=== PATIENT | male | born 1945 | race Caucasian/White ===

== ENCOUNTER 2017-01-31 13:08 | Emergency (ER) | payer OTHER ==
[2017-01-31 13:32] VITALS: TEMP 97.6; BMI 26.0
[2017-01-31] MEDS ORDERED: ONDANSETRON 4 MG/2 ML VIAL IVPB ONE (13:46)
[2017-01-31] MEDS ORDERED: KETOROLAC TROMETHAMINE 30 MG/1 ML VIAL IVPUSH ONE (13:47)
[2017-01-31] MEDS ORDERED: SODIUM CHLORIDE 1,000 ML IV STA (13:47)
--- NOTE | 2017-01-31 13:53 | PDOC ---
History of Present Illness - General Chief Complaint: Back Pain Stated Complaint: RIGHT BACK AND FLANK PAIN Time Seen by Provider: 01/31/17 13:26 - History of Present Illness Initial Comments: 01/31/17 13:49 71-year-old male with a past medical history of hypertension, hyperlipidemia, AODM, CAD status post CABG, and 2 stents, and also ulcerative colitis He has a remote history of a prior kidney stone 25 years ago Patient is complaining of onset of right flank pain radiating to his right lower quadrant at about 6 AM, which has intermittently become severe, and has been associated with nausea and some intermittent dark looking urine He denies any vomiting, he denies any fevers or chills, he denies any left sided flank pain He states that the pain feels similar to his prior kidney stone pain He denies any testicular pain He denies any other complaints at this time, and the remainder of the review of systems is negative Past History - Past Medical History Allergies/Adverse Reactions: Allergies Allergy/AdvReac Type Severity Reaction Status Date / Time No Known Allergies Allergy Unverified 01/31/17 13:10 Home Medications: Ambulatory Orders Atorvastatin Ca [Lipitor] 80 mg PO DAILY 01/31/17 Clopidogrel Bisulfate [Plavix -] 75 mg PO DAILY 01/31/17 Glipizide [Glipizide ER] 2.5 mg PO DAILY 01/31/17 Mesalamine [Lialda] 1.2 gm PO DAILY 01/31/17 Metoprolol Succinate [Toprol Xl -] 100 mg PO DAILY 01/31/17 Oxycodone HCl/Acetaminophen [Percocet 5-325 mg Tablet] 1 - 2 tab PO Q6H PRN #20 tab MDD 8 01/31/17 Tamsulosin HCl [Flomax] 0.4 mg PO DAILY #7 cap.er.24h 01/31/17 Cardiac Disorders: Yes Diabetes: Yes GI Disorders: Yes Kidney Stones: Yes - Surgical History Cardiac Surgery: Yes (BYPASS QUADRUPLE 2 STENTS) - Psycho/Social/Smoking Cessation Hx Anxiety: No Suicidal Ideation: No Smoking History: Former smoker Have you smoked in the past 12 months: No Information on smoking cessation initiated: No Hx Alcohol Use: No Drug/Substance Use Hx: No Substance Use Type: None Review of Systems - Review of Systems Able to Perform ROS?: Yes Comments:: 01/31/17 13:51 12 point review of systems is as per history of present illness and otherwise negative *Physical Exam - Vital Signs Last Vital Signs Temp Pulse Resp BP Pulse Ox 97.6 F 66 16 160/90 100 01/31/17 13:10 01/31/17 13:10 01/31/17 13:10 01/31/17 13:10 01/31/17 13:10 - Physical Exam Comments: 01/31/17 13:51 Physical exam Last Vital Signs Temp Pulse Resp BP Pulse Ox 97.6 F 66 16 160/90 100 01/31/17 13:10 01/31/17 13:10 01/31/17 13:10 01/31/17 13:10 01/31/17 13:10 GENERAL: The patient is awake, alert, and fully oriented, and in no apparent distress. HEAD: Normal with no signs of trauma. EYES: sclera anicteric, conjunctiva are normal. ENT: Moist mucous membranes. NECK: Normal range of motion, supple LUNGS: Breath sounds equal, clear to auscultation bilaterally. No wheezes, and no crackles. HEART: Regular rate and rhythm, normal S1 and S2 without murmur, rub or gallop. Back: There is right CVA tenderness, there is no left CVA tenderness ABDOMEN: The abdomen is soft with normal active bowel sounds and without hepatosplenomegaly there is mild right lower quadrant tenderness to palpation without guarding or rebound EXTREMITIES: Normal range of motion, no edema. No clubbing or cyanosis. No cords, erythema, or tenderness. NEUROLOGICAL: Cranial nerves II through XII grossly intact. Normal speech, normal gait. PSYCH: Normal mood, normal affect. SKIN: Warm, Dry, normal turgor, no rashes or lesions noted. ED Treatment Course - LABORATORY CBC & Chemistry Diagram: 01/31/17 13:45 01/31/17 13:45 - RADIOLOGY Radiology Studies Ordered: Category Date Time Status ABDOMEN & PELVIS CT W/O CONTR [CT] Stat CT Scan 01/31/17 13:45 Ordered Medical Decision Making - Medical Decision Making 01/31/17 15:00 CT scan of the abdomen and pelvis without contrast/kidney stone protocol There is right renal edema and perirenal stranding, and mild hydronephrosis There is a 2 mm proximal right ureteral calculus Laboratory Results - last 24 hr 0401/31/17 01/31/17 13:45 13:45 13:45 WBC 9.9 RBC 5.37 Hgb 15.7 Hct 47.1 MCV 87.6 MCHC 33.4 RDW 12.6 Plt Count 175 MPV 9.6 Sodium 136 Potassium 4.5 Chloride 103 Carbon Dioxide 26 Anion Gap 7 L BUN 17 Creatinine 1.1 Creat Clearance w eGFR > 60 Random Glucose 159 H Calcium 9.4 Total Bilirubin 1.0 AST 20 ALT 18 Alkaline Phosphatase 89 Total Protein 6.9 Albumin 3.9 Urine Color Yellow Urine Appearance Cloudy Urine pH 5.0 Ur Specific [place] 1.025 Urine Protein 1+ H Urine Glucose (UA) Negative Urine Ketones 1+ H Urine Blood 3+ H Urine Nitrite Negative Urine Bilirubin 1+ H Urine Urobilinogen 0.2 e.u/dl Ur Leukocyte Esterase Negative 01/31/17 15:47 Pt Is completely pain-free at this time Will discharge to home to strain urine, drink plenty of fluids, Percocet if pain recurs, and Flomax Will refer to urology for follow-up *DC/Admit/Observation/Transfer Diagnosis at time of Disposition: Ureteral colic, Kidney stone on right side - Discharge Dispostion Disposition: HOME Condition at time of disposition: Improved - Referrals Referrals: Edil Mims MD [Staff Physician] - (Urology-please call for an appointment [facility]) - Patient Instructions Printed Discharge Instructions: Kidney Stones -- Adult, DI for Kidney Stones Additional Instructions: Rest, drink plenty of water to try to pass the stone Flomax 1 pill daily - start tomorrow Percocet if needed for pain-do not drive when taking this medication Strain your urine Followup with your primary care physician in 24-48 hours Return immediately if you worsen in any way Take your medications as directed Please call urology to schedule an appointment for follow-up - Post Discharge Activity Work/School Note: Back to Work
[2017-01-31] MEDS ORDERED: KETOROLAC TROMETHAMINE 30 MG/1 ML VIAL ONE (13:55)
[2017-01-31] MEDS ORDERED: ONDANSETRON 4 MG/2 ML VIAL ONE (13:55)
[2017-01-31 14:03] LABS: MCH 29.2 pg (25.7-33.7); MCHC 33.4 g/dl (32.0-35.9); MEAN CELL VOLUME 87.6 fl (80-96); MEAN PLT VOLUME 9.6 fl (7.5-11.1); PLATELET COUNT 175 K/MM3 (134-434); RDW 12.6 % (11.9-15.9); WHITE BLOOD COUNT 9.9 K/mm3 (4.0-10.8)
[2017-01-31 14:16] LABS: ALBUMIN 3.9 g/dl (3.5-5.0); ALK PHOS 89 U/L (32-92); ANION GAP 7 (8-16); CALCIUM 9.4 mg/dl (8.4-10.2); CO2 26 mmol/L (22-28); CREATININE 1.1 mg/dl (0.6-1.3); GLUCOSE,RANDOM 159 mg/dl (74-106); SGOT/AST 20 U/L (10-42); SGPT/ALT 18 U/L (10-40); TOT PROT 6.9 g/dl (6.4-8.3)
[2017-01-31 14:25] LABS: URINE APPEARANCE Cloudy; URINE BILIRUBIN 1+ (NEGATIVE); URINE GLUCOSE (UA) Negative (NEGATIVE); URINE KETONE 1+ (NEGATIVE); URINE LEUK ESTERASE Negative (NEGATIVE); URINE NITRITE Negative (NEGATIVE); URINE UROBILINOGEN 0.2 E.U/dl (0.2-1.0)
[2017-01-31 14:26] LABS: URINE BLOOD 3+ (NEGATIVE); URINE COLOR YELLOW; URINE PROTEIN 1+ (NEGATIVE)
[2017-01-31] MEDS ORDERED: HYDROmorphone HCL CARPU-JECT 1 MG/1 ML DISP.SYRIN IVPUSH ONE (14:39)
[2017-01-31] MEDS ORDERED: HYDROmorphone HCL CARPU-JECT 2 MG/1 ML DISP.SYRIN ONE (14:43)
[2017-01-31 14:52] VITALS: BP 152/78; PULSE 64
[2017-01-31] MEDS ORDERED: TAMSULOSIN HCL 0.4 MG CAP.ER.24H (FP) PO ONE (15:01)
[2017-01-31] MEDS ORDERED: TAMSULOSIN HCL 0.4 MG CAP.ER.24H (FP) ONE (15:05)
[2017-01-31 18:18] LABS: URINE RBC MANY /hpf (0-3)
[2017-01-31 18:19] LABS: URINE BACTERIA MODERATE /hpf (NEGATIVE)
== END 2017-01-31 16:12 | disposition home or self-care (01) ==
LOC: FER 13:08
PROC: 3E033NZ Introduction of Analgesics, Hypnotics, Sedatives into Peripheral Vein, Percutaneous Approach (ICD-10-PCS; principal; 2017-01-31)
PROC: 3E0333Z Introduction of Anti-inflammatory into Peripheral Vein, Percutaneous Approach (ICD-10-PCS; 2017-01-31)
PROC: 3E033GC Introduction of Other Therapeutic Substance into Peripheral Vein, Percutaneous Approach (ICD-10-PCS; 2017-01-31)
PROC: 3E0337Z Introduction of Electrolytic and Water Balance Substance into Peripheral Vein, Percutaneous Approach (ICD-10-PCS; 2017-01-31)
DX: N20.2 Calculus of kidney with calculus of ureter (principal); Z87.442 Personal history of urinary calculi; I10 Essential (primary) hypertension; E78.5 Hyperlipidemia, unspecified; Z95.1 Presence of aortocoronary bypass graft; Z95.5 Presence of coronary angioplasty implant and graft; E11.9 Type 2 diabetes mellitus without complications; I25.10 Atherosclerotic heart disease of native coronary artery without angina pectoris
CPT/HCPCS: 36415; 74176-TC; 80053; 81003; 81015; 85027; 87086; 99283-25

== ENCOUNTER 2017-02-03 12:09 | Day surgery (SDC) | payer OTHER ==
[2017-02-03] MEDS ORDERED: KETOROLAC TROMETHAMINE 30 MG/1 ML VIAL IVPUSH ONE (13:16)
[2017-02-03] MEDS ORDERED: HYDROmorphone HCL CARPU-JECT 1 MG/1 ML DISP.SYRIN IVPUSH ONE (13:16)
[2017-02-03] MEDS ORDERED: HYDROmorphone HCL CARPU-JECT 2 MG/1 ML DISP.SYRIN ONE (13:23)
[2017-02-03] MEDS ORDERED: KETOROLAC TROMETHAMINE 30 MG/1 ML VIAL ONE (13:23)
--- NOTE | 2017-02-03 13:27 | PDOC ---
History of Present Illness <Ori Burr - Last Filed: 02/03/17 18:11> - History of Present Illness Initial Comments: 02/03/17 13:22 71-year-old male with a past medical history of hypertension, hyperlipidemia, AODM, CAD status post CABG, and 2 stents, and also ulcerative colitis Patient was seen in the emergency department on 01/31/17, with right ureteral colic type pain, and had a CT scan of the abdomen and pelvis showing right renal perinephric stranding and mild hydronephrosis and a 2 mm proximal right ureteral calculus Patient's labwork was normal, and a urine culture done on 01/31/17 is negative Patient states that since his discharge from the emergency department he has had spasms of pain off and on but has otherwise been okay between the attacks him a however since last p.m./early a.m., the pain became more severe on the right side He states that initially his pain was higher in the flank, and now the pain is more in his right lower quadrant and radiating into the right testicle He denies any fevers or chills He denies any dysuria He states that the pain since early this a.m. has not been controlled by the Percocet, prompting him to come back to the emergency department He states that he initially strained his urine for the first 24 hours, but has not been straining his urine since then He denies any left-sided pain <Allie Castillo - Last Filed: 02/03/17 22:18> - General Chief Complaint: Back Pain Stated Complaint: KIDNEY STONES Time Seen by Provider: 02/03/17 13:08 Past History <Ori Burr - Last Filed: 02/03/17 18:11> - Past Medical History Cardiac Disorders: Yes Diabetes: Yes GI Disorders: Yes Kidney Stones: Yes - Surgical History Cardiac Surgery: Yes (BYPASS QUADRUPLE 2 STENTS) - Psycho/Social/Smoking Cessation Hx Anxiety: No Suicidal Ideation: No Smoking History: Former smoker Have you smoked in the past 12 months: No Information on smoking cessation initiated: No Hx Alcohol Use: No Drug/Substance Use Hx: No Substance Use Type: None <Allie Castillo - Last Filed: 02/03/17 22:18> - Past Medical History Allergies/Adverse Reactions: Allergies Allergy/AdvReac Type Severity Reaction Status Date / Time No Known Allergies Allergy Verified 02/03/17 12:10 Home Medications: Ambulatory Orders Atorvastatin Ca [Lipitor] 80 mg PO DAILY 01/31/17 Clopidogrel Bisulfate [Plavix -] 75 mg PO DAILY 01/31/17 Glipizide [Glipizide ER] 2.5 mg PO DAILY 01/31/17 Mesalamine [Lialda] 1.2 gm PO DAILY 01/31/17 Metoprolol Succinate [Toprol Xl -] 100 mg PO DAILY 01/31/17 Oxycodone HCl/Acetaminophen [Percocet 5-325 mg Tablet] 1 - 2 tab PO Q6H PRN #20 tab MDD 8 01/31/17 Tamsulosin HCl [Flomax] 0.4 mg PO DAILY #7 cap.er.24h 01/31/17 Review of Systems - Review of Systems Able to Perform ROS?: Yes Comments:: 02/03/17 13:24 Review of systems is as per history of present illness and otherwise negative <Allie Castillo - Last Filed: 02/03/17 22:18> *Physical Exam - Vital Signs Last Vital Signs Temp Pulse Resp BP Pulse Ox 97.9 F 84 20 155/90 97 02/03/17 12:10 02/03/17 12:10 02/03/17 12:10 02/03/17 12:10 02/03/17 12:10 <Ori Burr - Last Filed: 02/03/17 18:11> - Vital Signs Last Vital Signs Temp Pulse Resp BP Pulse Ox 97.9 F 84 20 155/90 97 02/03/17 12:10 02/03/17 12:10 02/03/17 12:10 02/03/17 12:10 02/03/17 12:10 - Physical Exam Comments: 02/03/17 13:25 Physical exam Last Vital Signs Temp Pulse Resp BP Pulse Ox 97.9 F 84 20 155/90 97 02/03/17 12:10 02/03/17 12:10 02/03/17 12:10 02/03/17 12:10 02/03/17 12:10 GENERAL: The patient is awake, alert, and answering questions HEAD: Normal with no signs of trauma. EYES: sclera anicteric, conjunctiva are normal. ENT: Moist mucous membranes. NECK: Normal range of motion, supple LUNGS: Breath sounds equal, clear to auscultation bilaterally. No wheezes, and no crackles. HEART: Regular rate and rhythm, normal S1 and S2 without murmur, rub or gallop. ABDOMEN: The abdomen is soft with normal active bowel sounds There is mild diffuse right-sided tenderness, with no flank tenderness at this time On 01/31, the pain was more primarily in the flank, but as per patient it seems to have moved down to more right lower quadrant pain with radiation of pain into the right testicle EXTREMITIES: Normal range of motion, no edema. No clubbing or cyanosis. No cords, erythema, or tenderness. NEUROLOGICAL: Cranial nerves II through XII grossly intact. Normal speech, normal gait. PSYCH: Normal mood, normal affect. SKIN: Warm, Dry, normal turgor, no rashes or lesions noted. <Allie Castillo - Last Filed: 02/03/17 22:18> Heart Score/ECG Review - ECG Intrepretation Comment:: 02/03/17 18:11 EKG normal sinus rhythm 84 Left axis deviation -43 degrees normal av and Iv conduction time normal qtc non-specific STV waves <Ori Burr - Last Filed: 02/03/17 18:11> ED Treatment Course - LABORATORY CBC & Chemistry Diagram: 02/03/17 13:16 02/03/17 13:16 - ADDITIONAL ORDERS Additional order review: Laboratory Results 02/03/17 02/03/17 13:16 13:06 Sodium 137 Potassium 3.9 Chloride 104 Carbon Dioxide 25 Anion Gap 8 BUN 13 D Creatinine 1.3 Creat Clearance w eGFR 54.11 Random Glucose 155 H Calcium 9.0 Total Bilirubin 1.1 H AST 17 ALT 16 Alkaline Phosphatase 84 Total Protein 6.6 Albumin 3.6 Urine Color Yellow Urine Appearance Clear Urine pH 5.5 Ur Specific [place] 1.010 Urine Protein Negative Urine Glucose (UA) Negative Urine Ketones Trace Urine Blood 2+ H Urine Nitrite Negative Urine Bilirubin Negative Urine Urobilinogen 0.2 e.u/dl Ur Leukocyte Esterase Negative Urine RBC 2-3 Urine WBC 0-2 Urine Bacteria Few 02/03/17 13:16 RBC 4.99 MCV 86.9 MCHC 34.1 RDW 12.6 MPV 9.5 - RADIOLOGY Radiology Studies Ordered: 02/03/17 16:38 EXAM#: TYPE/EXAM: RESULT: [id number] CT/ABDOMEN PELVIS CT W/O CONTR Abdomen and pelvis CT without contrast Clinical information: right sided stone pain In comparison to a previous CT exam of 01/31/2017 a previously identified 3 mm proximal right ureteral calculus is now located at the ureterovesical junction. Increased right-sided hydronephrosis is noted which currently appears moderate. Note is also made of increased perirenal soft tissue stranding and fluid accumulation due to acute obstruction. The remainder of the study demonstrates no definite interval change. No other radiopaque urinary tract calculus is visualized. Several small bilateral renal hypodense cortical foci noted probably representing cysts. Fusiform aneurysmal dilatation of the right common iliac artery with a 2.3 cm diameter. There is fusiform near aneurysmal dilatation of the infrarenal aorta with a 2.9 cm diameter. Periodic imaging surveillance is suggested Mild splenomegaly (14 cm length). No definite lymphadenopathy is identified. The liver, pancreas, gallbladder, and adrenal glands demonstrate no discrete noncontrast abnormality. Bilateral inguinal hernias containing fat only. Mild left-sided colonic diverticulosis. Left hip moderate to marked degenerative joint changes. No free intraperitoneal fluid or bowel obstruction. Status post median sternotomy. IMPRESSION: A 3 mm right ureterovesical junction calculus is identified which was previously located within the proximal ureter at the time of a CT study of 01/31/2017. There is interval increased hydronephrosis which currently is at least moderate. Increased right perirenal soft tissue stranding and fluid accumulation is noted secondary to acute obstruction. The remainder of the study demonstrates no definite interval change. Mild splenomegaly. 2.3 cm right common iliac artery aneurysm. 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 Bilateral inguinal hernias containing fat only. Reported By: Jayme Pillai MD 02/03/17 1594 - Medications Given in the ED: ED Medications Discontinued Medications Generic Name Dose Route Start Last Admin Trade Name Freq PRN Reason Stop Dose Admin Hydromorphone HCl 0.5 mg 02/03/17 13:16 02/03/17 13:45 Dilaudid Injection - IVPUSH 02/03/17 13:17 0.5 mg ONCE ONE Administration Levofloxacin 100 mls @ 100 mls/hr 02/03/17 15:02 02/03/17 15:58 Levaquin 500 Mg Premixed Ivpb - IVPB 02/03/17 16:01 100 mls/hr ONCE ONE Administration Ketorolac Tromethamine 30 mg 02/03/17 13:16 02/03/17 13:50 Toradol Injection - IVPUSH 02/03/17 13:17 30 mg ONCE ONE Administration <Ori Burr - Last Filed: 02/03/17 18:11> - LABORATORY CBC & Chemistry Diagram: 02/03/17 13:16 02/03/17 13:16 <Allie Castillo - Last Filed: 02/03/17 22:18> Medical Decision Making - Medical Decision Making 02/03/17 13:26 Clinically, it sounds like the stone is moving further down and attempting to pass the UVJ Will hydrate, to try to expedite this process, control pain, and recheck labwork 02/03/17 15:45 White count has gone up since 01/31 WBC on 01/31 was 9.9, and it's 11.6 today Creatinine was 1.1 with a creatinine clearance of 60 on 01/31 and today the creatinine is 1.3, with a creatinine clearance of 54 Urine today with 2+ blood 0-2 whites 2-3 reds Given the elevated white count, I would repeat the CT scan at this time, and also give 500 of Levaquin IV 02/03/17 16:39 CT scan of the abdomen and pelvis There is a 3 mm right UVJ stone identified which was previously located with in the proximal ureter at the time of the CAT scan on 01/31/17 There is increased hydronephrosis which is currently at least moderate There is increased right perirenal soft tissue stranding, and some fluid accumulation noted secondary to acute obstruction The remainder of the study demonstrates no definite interval changed There is a stable 2.3 cm right common iliac artery aneurysm Laboratory Results - last 24 hr 02/03/17 02/03/17 02/03/17 13:06 13:16 13:16 WBC 11.6 H RBC 4.99 Hgb 14.8 Hct 43.4 MCV 86.9 MCHC 34.1 RDW 12.6 Plt Count 168 MPV 9.5 Sodium 137 Potassium 3.9 Chloride 104 Carbon Dioxide 25 Anion Gap 8 BUN 13 D Creatinine 1.3 Creat Clearance w eGFR 54.11 Random Glucose 155 H Calcium 9.0 Total Bilirubin 1.1 H AST 17 ALT 16 Alkaline Phosphatase 84 Total Protein 6.6 Albumin 3.6 Urine Color Yellow Urine Appearance Clear Urine pH 5.5 Ur Specific [place] 1.010 Urine Protein Negative Urine Glucose (UA) Negative Urine Ketones Trace Urine Blood 2+ H Urine Nitrite Negative Urine Bilirubin Negative Urine Urobilinogen 0.2 e.u/dl Ur Leukocyte Esterase Negative Urine RBC 2-3 Urine WBC 0-2 Urine Bacteria Few Worsening hydronephrosis secondary to ureteral stone Rule out urinary tract infection case and all results discussed with hospitalist-will admit Urology paged - Dr Joyce 02/03/17 16:[address] Mims-urology Will keep nothing by mouth after midnight-patient may need a stent pre-op clearence by hospitalist <Allie Castillo - Last Filed: 02/03/17 22:18> *DC/Admit/Observation/Transfer <Ori Burr - Last Filed: 02/03/17 18:11> - Discharge Dispostion Admit: Yes <Allie Castillo - Last Filed: 02/03/17 22:18> Diagnosis at time of Disposition: Kidney stone on right side, Ureteral colic, Hydronephrosis - Referrals
[2017-02-03] MEDS ORDERED: SODIUM CHLORIDE 1,000 ML IV SCH ×3 (13:30→21:15)
[2017-02-03 13:36] LABS: PH,URINE 5.5 (4.5-8); URINE APPEARANCE Clear; URINE BILIRUBIN Negative (NEGATIVE); URINE GLUCOSE (UA) Negative (NEGATIVE); URINE KETONE Trace (NEGATIVE); URINE LEUK ESTERASE Negative (NEGATIVE); URINE NITRITE Negative (NEGATIVE); URINE PROTEIN Negative (NEGATIVE); URINE UROBILINOGEN 0.2 E.U/dl (0.2-1.0)
[2017-02-03 13:38] LABS: URINE BLOOD 2+ (NEGATIVE)
[2017-02-03 13:39] LABS: URINE COLOR YELLOW
[2017-02-03 13:57] LABS: URINE BACTERIA FEW /hpf (NEGATIVE); URINE WBC 0-2 (3-5)
[2017-02-03 14:11] LABS: ALBUMIN 3.6 g/dl (3.5-5.0); ALK PHOS 84 U/L (32-92); ANION GAP 8 (8-16); BILIRUBIN,TOTAL 1.1 mg/dl (0.2-1.0); CO2 25 mmol/L (22-28); CREATININE 1.3 mg/dl (0.6-1.3); GLUCOSE,RANDOM 155 mg/dl (74-106); SGOT/AST 17 U/L (10-42); SGPT/ALT 16 U/L (10-40); TOT PROT 6.6 g/dl (6.4-8.3)
[2017-02-03 14:41] LABS: MCH 29.6 pg (25.7-33.7); MCHC 34.1 g/dl (32.0-35.9); MEAN CELL VOLUME 86.9 fl (80-96); MEAN PLT VOLUME 9.5 fl (7.5-11.1); PLATELET COUNT 168 K/MM3 (134-434); RDW 12.6 % (11.9-15.9); WHITE BLOOD COUNT 11.6 K/mm3 (4.0-10.8)
[2017-02-03] MEDS ORDERED: LEVOFLOXACIN 500 MG IVPB 100 ML IVPB ONE ×2 (15:02→15:59)
[2017-02-03] MEDS ORDERED: ACETAMINOPHEN 325 MG TABLET (FP) PO PRN (17:24)
[2017-02-03 18:25] VITALS: BMI 25.6
--- NOTE | 2017-02-03 20:27 | HP ---
Admitting History and Physical - Admission Chief Complaint: renal colic History of Present Illness: 71-year-old male with a past medical history of hypertension, hyperlipidemia, AODM, CAD status post CABG (2008), and 3 stents(1993, 2008), kidney stones and also ulcerative colitis returns to ER for evaluation of renal colic. He was seen in the ER a few days ago for renal colic and had ctap done which showed right renal edema and perirenal stranding, and mild hydronephrosis, 2 mm proximal right ureteral calculus. He was given script for Percocet and instructed to hydrate himself, which briefly ameliorated his symptoms. He states that he began to feel R flank pain, and RLQ pain Saturday which progressively got worse. He reports the pain was 6-7/10 sharp and radiated to his groin. He reports associated mild urinary burning and nausea. He denies vomiting, fevers, diarrhea. he denies cp, heart palps, syncope, leg edema. he reports on and off cough for 2 weeks w clear sputum. he denies spence, body aches, nasal congestion, watery eyes. ER course: 1> Given Dilauidid IV, NS 1000cc in ER, LVQ, Ketorolac Pmh/psh- hypertension, hyperlipidemia, AODM, CAD status post CABG (2008), and 3 stents(1993, 2008) and also ulcerative colitis, kidney stones social- former smoker. denies alcohol, rec drugs. works as a musician, . famhx- no contributory Ros neg except for hpi Pcp-Dr. vasquez Cards- Dr. Precious Moser-GI Physical Gen- in nad, alert Resp- + cough, no ronchi, no wheeze, lungs ctab Cards- s1s2 heard no murmurs, no JVD, no leg edema, RRR Hent- at/nc, queta, neck supple, trachea midline, no pharyngeal erythema Skin- no erythema, no lesions Psych- cooperative, no agitation Neuro- Cn2-12 grossly intact, no seizures, no facial droop, speech clear musk- normal arom bue/ble, no back pain - no cvat Prob list renal colic nephrolithiasis hydronephrosis dm htn cad cough hlp imagin02/03/17 16:39 CT scan of the abdomen and pelvis There is a 3 mm right UVJ stone identified which was previously located with in the proximal ureter at the time of the CAT scan on 01/31/17 There is increased hydronephrosis which is currently at least moderate There is increased right perirenal soft tissue stranding, and some fluid accumulation noted secondary to acute obstruction The remainder of the study demonstrates no definite interval changed There is a stable 2.3 cm right common iliac artery aneurysm ecg- nsr, lad, low voltage qrs, non-specific t wave abnormality. vent rate 84, pr 164, qtc 453. twi III,v3, v4. flat twave v5,v6,v2 a/p- hypertension, hyperlipidemia, AODM, CAD status post CABG (2008), and 3 stents(1993, 2008) and also ulcerative colitis, kidney stones admitted for eval of their emergent condition. 1. Obstructive uropathy, hydronephrosis CTAP shows 3mm R UVJ stone, increased hydronephrosis, increased R perirenal soft tissue stranding IVF Strain urine Continue flomax Pain control Or in am Urology following 2. CAD s/p stents and CABG Hold Plavix tonight REsume after surgery 3. HTN Continue home meds 4. HLP Cont home meds 5. UC continue home meds 6. 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 DM Hold sulfonyrurea until eating SSI for now 8. Productive cough, probably URi FU CXR Supportive care 9. Nausea Prn Zofran DVT prophy- scd, oob, hold chemprophy in anticipation for surgery FEN NPO IVF RN updated on poc Dispo- Requires >2mn stay for obstructive uropathy, hydronephrosis History Source: Patient Limitations to Obtaining History: No Limitations - Smoking History Smoking history: Former smoker Have you smoked in the past 12 months: No If you are a former smoker, when did you quit?: 1979 - Alcohol/Substance Use Hx Alcohol Use: No Home Medications - Allergies Allergies/Adverse Reactions: Allergies Allergy/AdvReac Type Severity Reaction Status Date / Time No Known Allergies Allergy Verified 02/03/17 12:10 - Home Medications Home Medications: Ambulatory Orders Atorvastatin Ca [Lipitor] 80 mg PO DAILY 01/31/17 Clopidogrel Bisulfate [Plavix -] 75 mg PO DAILY 01/31/17 Glipizide [Glipizide ER] 2.5 mg PO DAILY 01/31/17 Mesalamine [Lialda] 1.2 gm PO DAILY 01/31/17 Metoprolol Succinate [Toprol Xl -] 100 mg PO DAILY 01/31/17 Oxycodone HCl/Acetaminophen [Percocet 5-325 mg Tablet] 1 - 2 tab PO Q6H PRN #20 tab MDD 8 01/31/17 Tamsulosin HCl [Flomax] 0.4 mg PO DAILY #7 cap.er.24h 01/31/17 Physical Examination Vital Signs: Vital Signs Temperature 98.4 F 02/03/17 18:54 Pulse Rate 88 02/03/17 18:54 Respiratory Rate 19 02/03/17 20:11 Blood Pressure 175/76 02/03/17 18:54 O2 Sat by Pulse Oximetry (%) 99 02/03/17 20:11 Visit type - Emergency Visit Emergency Visit: Yes ED Registration Date: 02/03/17 Care time: The patient presented to the Emergency Department on the above date and was hospitalized for further evaluation of their emergent condition. - New Patient This patient is new to me today: Yes Date on this admission: 02/04/17 - Critical Care Critical Care patient: No
[2017-02-03] MEDS ORDERED: ONDANSETRON 4 MG/2 ML VIAL IVPB PRN (21:25)
[2017-02-03] MEDS ORDERED: DEXTROSE 5%-NORMAL SALINE 1,000 ML IV SCH (23:45)
[2017-02-04] MEDS: INSULIN SLIDING SCALE (NOVOLOG) 1 VIAL SQ SCH ×4 (00:22→18:58)
[2017-02-04] MEDS: morphine CARPU-JECT 2 MG/1 ML DISP.SYRIN IVPB PRN ×2 (00:46→14:24)
[2017-02-04] MEDS ORDERED: glipiZIDE-XL 2.5 MG TAB.ER.24 PO SCH (07:00)
--- NOTE | 2017-02-04 07:48 | CON.GU ---
Consult Consult Specialty:: urology Reason for Consultation:: R UVJ calculus - History of Present Illness Chief Complaint: R flank RLQ pain History of Present Illness: 71 yo m pres to ED c/o worsening R flank and RLQ pain assoc w N, and dysuria found on CT to have obstructing 3 mm R UVJ calculus w mod hydronephrosis and perinephric stranding. NO fever or chills. - History Source History Provided By: Patient, Medical Record Limitations to Obtaining History: No Limitations - Past Medical History Cardio/Vascular: Yes: Aneurysm, CAD, Hyperlipdemia Renal/: Yes: Renal Calculi - Past Surgical History Past Surgical History: Yes: CABG, Stent - Alcohol/Substance Use Hx Alcohol Use: No - Smoking History Smoking history: Former smoker Have you smoked in the past 12 months: No If you are a former smoker, when did you quit?: 1979 Home Medications - Allergies Allergies/Adverse Reactions: Allergies Allergy/AdvReac Type Severity Reaction Status Date / Time No Known Allergies Allergy Verified 02/03/17 12:10 - Home Medications Home Medications: Ambulatory Orders Atorvastatin Ca [Lipitor] 80 mg PO DAILY 01/31/17 Clopidogrel Bisulfate [Plavix -] 75 mg PO DAILY 01/31/17 Glipizide [Glipizide ER] 2.5 mg PO DAILY 01/31/17 Mesalamine [Lialda] 1.2 gm PO DAILY 01/31/17 Metoprolol Succinate [Toprol Xl -] 100 mg PO DAILY 01/31/17 Oxycodone HCl/Acetaminophen [Percocet 5-325 mg Tablet] 1 - 2 tab PO Q6H PRN #20 tab MDD 8 01/31/17 Tamsulosin HCl [Flomax] 0.4 mg PO DAILY #7 cap.er.24h 01/31/17 Review of Systems - Review of Systems Gastrointestinal: reports: Nausea Genitourinary: reports: Dysuria Physical Exam- Vital Signs: Vital Signs Temperature 99.5 F 02/04/17 06:54 Pulse Rate 78 02/04/17 06:54 Respiratory Rate 17 02/04/17 06:54 Blood Pressure 136/64 02/04/17 06:54 O2 Sat by Pulse Oximetry (%) 96 02/04/17 06:54 Gastrointestinal: Yes: Normal Bowel Sounds, Soft, Tenderness Renal/: Yes: CVA Tenderness - Right Testicles: Yes: WNL Scrotum: Yes: WNL Penis: Yes: WNL Imaging - Results Cat Scan: Report Reviewed Assessment/Plan Imp: 3 mm R UVJ calculus, R hydronephrosis Rec: ivfs at 150 ml/hr, strain urine, analgesia, cont tamsulosin, hold plavix, R ureteroscopic laser lithotripsy and R JJ stent insertion.
[2017-02-04] MEDS ORDERED: DEXTROSE 5%-NORMAL SALINE 1,000 ML IV SCH (08:01)
--- NOTE | 2017-02-04 08:01 | PN ---
Physical Exam: SUBJECTIVE: Patient seen and examined, patient reports suprapubic pressure, denies any abdominal pain, nausea or vomiting., OBJECTIVE: patient is a 71-year-old male with a past medical history of hypertension, hyperlipidemia, AODM, CAD status post CABG (2008), and 3 stents( 1993, 2008), kidney stones and also ulcerative colitis. patient was admitted from the emergency department for obstructing right renal calculi with hydronephrosis. Vital Signs Period Temp Pulse Resp BP Sys/Dee Pulse Ox Last 24 Hr 98.4 F-99.6 F 78-88 17-21 134-175/64-76 96-99 GENERAL: The patient is awake, alert, and fully oriented, in no acute distress. HEAD: Normal with no signs of trauma. EYES: PERRL, extraocular movements intact, sclera anicteric, conjunctiva clear. No ptosis. ENT: Ears normal, nares patent, oropharynx clear without exudates, moist mucous membranes. NECK: Trachea midline, full range of motion, supple. LUNGS: Breath sounds equal, clear to auscultation bilaterally, no wheezes, no crackles, no accessory muscle use. HEART: Regular rate and rhythm, S1, S2 without murmur, rub or gallop. ABDOMEN: Soft, + suprapbic tenderness, nontender, nondistended, normoactive bowel sounds, no guarding, no rebound, no hepatosplenomegaly, no masses. EXTREMITIES: 2+ pulses, warm, well-perfused, no edema. NEUROLOGICAL: Cranial nerves II through XII grossly intact. Normal speech, gait not observed. PSYCH: Normal mood, normal affect. SKIN: Warm, dry, normal turgor, no rashes or lesions noted Laboratory Results - last 24 hr 02/03/17 02/04/17 02/04/17 22:35 00:33 06:03 POC Glucometer 73 97 132 CBC, BMP 02/04/17 08:00 02/04/17 07:00 Active Medications Generic Name Dose Route Start Last Admin Trade Name Freq PRN Reason Stop Dose Admin Acetaminophen 650 mg 02/03/17 17:24 Tylenol - PO Q4H PRN FEVER OR PAIN Atorvastatin Calcium 80 mg 02/04/17 10:00 Lipitor - PO DAILY JANAY Ceftriaxone Sodium 1 gm 02/04/17 10:00 Rocephin 1gm Ivpb (Pre-Docked) IVPB DAILY [facility] Clopidogrel Bisulfate 75 mg 02/04/17 10:00 Plavix - PO DAILY [facility] Glipizide 2.5 mg 02/04/17 07:00 02/04/17 07:12 Glucotrol Xl - PO Not Given DAILY@0700 [facility] Sodium Chloride 1,000 mls @ 83 mls/hr 02/03/17 21:15 02/03/17 23:24 Normal Saline - IV 83 mls/hr ASDIR JANAY Administration Dextrose/Sodium Chloride 1,000 mls @ 100 mls/hr 02/04/17 08:01 02/04/17 08:36 D5-Ns - IV 100 mls/hr ASDIR JANAY Administration Insulin Aspart 1 vial 02/03/17 22:00 02/04/17 07:12 Novolog Vial Sliding Scale - SQ Not Given ACHS [facility] Protocol Lactobacillus Acidophilus 1 tab 02/04/17 10:00 Bacid - PO DAILY [facility] Metoprolol Succinate 100 mg 02/04/17 10:00 Toprol Xl - PO DAILY [facility] Morphine Sulfate 2 mg 02/03/17 17:24 02/04/17 00:46 Morphine Injection - IVPB 2 mg Q4H PRN Administration PAIN Non-Formulary Medication 1.2 gm 02/04/17 10:00 Mesalamine [Lialda] PO DAILY [facility] Ondansetron HCl 4 mg 02/03/17 21:25 Zofran Injection IVPB Q4H PRN NAUSEA AND/OR VOMITING Tamsulosin HCl 0.4 mg 02/04/17 08:30 02/04/17 08:34 Flomax - PO 0.4 mg DAILY@0830 JANAY Administration imaging [address] abdomen and pelvis without contrast: 3 mm right calculus in UVJ, increased hydronephrosis, 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 : Obstructive uropathy, hydronephrosis - Continue IV fluids patient to remain nothing by mouth, case discussed with urologist Dr. Mims at bedside pending OR today for stent placement and lithotripsy - Continue Flomax - Continue Rocephin 1 g IV - Continue when necessary pain medication 2. card CAD s/p stents and CABG - continue to hold plavix, pending OR - continue Lipitor LFTs WNL HTN - continue toprol iliac artery aneurysm - incidental finding noted on ct scan - f/u vascular as outpatient 3) endo NIDDM - hold glyburide, fingersticks ACHS w/regular insulin coverage. f/E/N -IVF normal saline with 20 mEq of KCl at 100 mL an hour - replete potassium - Nothing by mouth pending or PPX - Hold AC pending OR - oob - scd Dispo- Requires >2mn stay for obstructive uropathy, hydronephrosis, pending OR today, patient is medically optimized for surgery Visit type - Emergency Visit Emergency Visit: Yes Care time: The patient presented to the Emergency Department on the above date and was hospitalized for further evaluation of their emergent condition. - New Patient This patient is new to me today: Yes Date on this admission: 02/04/17 - Critical Care Critical Care patient: No - Discharge Referral Referred to [facility] Med P.C.: No
[2017-02-04] MEDS ORDERED: TAMSULOSIN HCL 0.4 MG CAP.ER.24H (FP) PO SCH (08:30)
[2017-02-04 09:16] LABS: BASOPHIL 0.5 % (0-2.0); EOSINOPHIL 1.2 % (0-4.5); MCH 29.1 pg (25.7-33.7); MCHC 32.8 g/dl (32.0-35.9); MEAN CELL VOLUME 88.6 fl (80-96); NEUTROPHILS 72.3 % (42.8-82.8); PLATELET COUNT 168 K/MM3 (134-434); RDW 12.8 % (11.9-15.9); WHITE BLOOD COUNT 7.8 K/mm3 (4.0-10.8)
[2017-02-04 09:29] LABS: INR 1.27 (0.82-1.09); PROTHROMBIN TIME (PATIENT) 14.2 SEC (10.2-13.0)
[2017-02-04 09:32] LABS: ALK PHOS 70 U/L (32-92); ANION GAP 8 (8-16); BILIRUBIN,TOTAL 1.2 mg/dl (0.2-1.0); CALCIUM 8.4 mg/dl (8.4-10.2); CO2 24 mmol/L (22-28); CREATININE 1.2 mg/dl (0.6-1.3); GLUCOSE,RANDOM 169 mg/dl (74-106); SGOT/AST 14 U/L (10-42); SGPT/ALT 12 U/L (10-40); TOT PROT 5.6 g/dl (6.4-8.3)
[2017-02-04] MEDS ORDERED: LACTOBACILLUS ACIDOPHILUS 1 EACH TAB (FP) PO SCH (10:00)
[2017-02-04] MEDS ORDERED: CEFTRIAXONE 1 GM in DEXTROSE 5%-WATER - 50 ML IVPB SCH (10:00)
[2017-02-04] MEDS ORDERED: cefTRIAXone 1 GM/50 ML BAG (PRE-DOCKED) IVPB SCH (10:00)
[2017-02-04] MEDS ORDERED: PATIENT'S OWN MEDICATION (NON-FORMULARY) (Mesalamine [Lialda] 1.2 GM) PO SCH ×2 (10:00)
[2017-02-04] MEDS ORDERED: CLOPIDOGREL BISULFATE 75 MG TABLET (FP) PO SCH (10:00)
[2017-02-04] MEDS ORDERED: METOPROLOL SUCCINATE 100 MG TAB.SR.24H (FP) PO SCH (10:00)
[2017-02-04] MEDS ORDERED: ATORVASTATIN CA 80 MG TABLET (FP) PO SCH (10:00)
[2017-02-04] MEDS ORDERED: D5-NS + 20 MEQ KCL - 1,000 ML IV SCH (10:15)
[2017-02-04] MEDS ORDERED: POTASSIUM CHLORIDE TABS 20 MEQ TABLET.ER (FP) PO ONE (10:30)
[2017-02-04] MEDS ORDERED: SODIUM CHLORIDE 0.45%/POT 1,000 ML IV SCH (10:45)
--- NOTE | 2017-02-04 15:03 | OP ---
Operative Note - Note: Operative Date: 02/04/17 Pre-Operative Diagnosis: R UVJ calculus, R hydronephrosis Operation: cystoscopy, R ureteroscopic laser lithotripsy, R JJ stent insertion Findings: 3 mm R UVJ calculus, mod R hydronephrosis Post-Operative Diagnosis: Same as Pre-op Surgeon: Edil Mims Anesthesiologist/[employer]REDD[employer]KER MACHINE: Lamar Jacobo MD Anesthesia: General Specimens Removed: R ureteral calculi Estimated Blood Loss (mls): 0 Drains & Tubes with Location: 6 fr 26 cm R JJ stent Operative Report Dictated: Yes
[2017-02-04] MEDS ORDERED: MIDAZOLAM HCL 2 MG/2 ML SINGLE DOSE VIAL ONE (15:51)
--- NOTE | 2017-02-04 15:52 | PN ---
Physical Exam: SUBJECTIVE: Patient seen and examined Patient resting on OR bed, intubated and sedated, about to undergo lithotripsy. afebrile and hemodynamically stable. OBJECTIVE: GENERAL: under general anesthesia in OR HEAD: Normal with no signs of trauma. EYES: pinpoint form anesthesia. ENT: moist mucous membranes. NECK: supple. LUNGS: Breath sounds equal, clear to auscultation bilaterally HEART: Regular rate and rhythm, S1, S2 ABDOMEN: Soft, nontender, nondistended, globally reduced bowel sounds EXTREMITIES: 2+ pulses, warm, well-perfused, no edema. NEUROLOGICAL: unable to assess, intubated, sedated PSYCH: Normal mood, normal affect. SKIN: Warm, dry Active Medications Generic Name Dose Route Start Last Admin Trade Name Freq PRN Reason Stop Dose Admin Acetaminophen 650 mg 02/03/17 17:24 Tylenol - PO Q4H PRN FEVER OR PAIN Atorvastatin Calcium 80 mg 02/04/17 10:00 02/04/17 09:19 Lipitor - PO Not Given DAILY [facility] Ceftriaxone Sodium 1 gm 02/04/17 10:00 02/04/17 09:21 Rocephin 1gm Ivpb (Pre-Docked) IVPB 1 gm DAILY JANAY Administration Clopidogrel Bisulfate 75 mg 02/04/17 10:00 Plavix - PO DAILY JANAY Glipizide 2.5 mg 02/04/17 07:00 02/04/17 07:12 Glucotrol Xl - PO Not Given DAILY@0700 JANAY Sodium Chloride 1,000 mls @ 83 mls/hr 02/03/17 21:15 02/03/17 23:24 Normal Saline - IV 83 mls/hr ASDIR JANAY Administration Potassium Chloride/Sodium Chloride 1,000 mls @ 100 mls/hr 02/04/17 10:45 11:33 1/2ns+20meq Kcl IV 100 mls/hr ASDIR JANAY Administration Insulin Aspart 1 vial 02/03/17 22:00 02/04/17 10:34 Novolog Vial Sliding Scale - SQ Not Given ACHS [facility] Protocol Lactobacillus Acidophilus 1 tab 02/04/17 10:00 02/04/17 09:19 Bacid - PO Not Given DAILY JANAY Metoprolol Succinate 100 mg 02/04/17 10:00 02/04/17 09:20 Toprol Xl - PO 100 mg DAILY JANAY Administration Morphine Sulfate 2 mg 02/03/17 17:24 02/04/17 14:24 Morphine Injection - IVPB 2 mg Q4H PRN Administration PAIN Non-Formulary Medication 1.2 gm 02/04/17 10:00 Mesalamine [Lialda] PO DAILY [facility] Ondansetron HCl 4 mg 02/03/17 21:25 Zofran Injection IVPB Q4H PRN NAUSEA AND/OR VOMITING Tamsulosin HCl 0.4 mg 02/04/17 08:30 02/04/17 08:34 Flomax - PO 0.4 mg DAILY@0830 [facility] Administration ASSESSMENT/PLAN: This is a 71 yo M with PMH of nephrolithiasis, CAD s/p cabg 2008 and stents, HTN. HLD, DM and UC, who presents due to worsening renal colic. R proximal ureteral stone a few days ago on CT, now at vesiculoureteral jxn, with worsened moderate hydro and increased r kidney stranding. UA no infection. Renal colic -due to R ureteral stone [address] at vesiculoureteral jxn -complicated by worsening moderate hydronephrosis and stranding -lithotripsy with Dr Mims today -preop rocephin, can stop post op if ok with uro -postop toradol for pain control. -Postop IVF -flomax 0.4 d -zofran prn -keep anderson in place HTN -toprol xl 100d HLD -lipitor 80 d DM -sliding scale ACHS -BGM ACHS -glipizide CAD -plavix 75 d Ulcerative colitis -bacid -liada FEN NS@83 replete lytes diabetic diet Dispo: med pascual, anticipate d/c tomorrow Problem List - Problems (1) Hydronephrosis Code(s): N13.30 - UNSPECIFIED HYDRONEPHROSIS (2) Kidney stone on right side Code(s): N20.0 - CALCULUS OF KIDNEY (3) Ureteral colic Code(s): N23 - UNSPECIFIED RENAL COLIC (4) HTN (hypertension) Code(s): I10 - ESSENTIAL (PRIMARY) HYPERTENSION (5) HLD (hyperlipidemia) Code(s): E78.5 - HYPERLIPIDEMIA, UNSPECIFIED (6) Diabetes Code(s): E11.9 - TYPE 2 DIABETES MELLITUS WITHOUT COMPLICATIONS (7) Ulcerative colitis Code(s): K51.90 - ULCERATIVE COLITIS, UNSPECIFIED, WITHOUT COMPLICATIONS (8) CAD (coronary artery disease) Code(s): I25.10 - ATHSCL HEART DISEASE OF [place] CORONARY ARTERY W/O ANG PCTRS Visit type - Emergency Visit Emergency Visit: Yes ED Registration Date: 02/04/17 Care time: The patient presented to the Emergency Department on the above date and was hospitalized for further evaluation of their emergent condition. - New Patient This patient is new to me today: Yes Date on this admission: 02/04/17 - Critical Care Critical Care patient: No - Discharge Referral Referred to [facility] Med P.C.: No
[2017-02-04] MEDS ORDERED: PROPOFOL 20 ML ONE (16:02)
[2017-02-04] MEDS ORDERED: LIDOCAINE HCL 2% JELLY 10 ML CARTRIDGE ONE (16:32)
--- NOTE | 2017-02-04 17:17 | PN ---
Teaching Attending Note Name of Resident: Kalyani Ortega ATTENDING PHYSICIAN STATEMENT I saw and evaluated the patient. I reviewed the resident's note and discussed the case with the resident. I agree with the resident's findings and plan as documented. SUBJECTIVE: Pt is seen in recovery room. awake and alert , denies any pain , has no SOB . has no Abd discomfort. OBJECTIVE: awake , alert and oriented. dry MM. symmetric face Lungs : bibasilar crackles CV: RRR, no MRG. no JVD Abd : obese , soft, NT, ND , NL BS Ext : no edema , 2+ DP. ASSESSMENT AND PLAN: 71 y/o man with h/o multiple medical problems including HTN, HLP, CAD s/p CABG, and nephrolithiasis , who presented with worsening flank pain and was found to have obstructing R UVJ stone with worsening Hydronephrosis . 1- R UVJ stone , with hydronephrosis: now s/p lithotripsy and tent placement stop IVF switch to PO abx per urology . ( prophylactically, no evidence of infection on U cx 2 daysa ago or UA here . Blood cx drawn last night still pending ) try to ambulate . if he does well , can go home to follow with uro as out pt resume plavix on 2- HTN, HLP, DM . cont his home meds resume plavix on 02/06 dispo : can be dc if stable after ambulating .
[2017-02-04] MEDS ORDERED: morphine CARPU-JECT 2 MG/1 ML DISP.SYRIN IVPB PRN (17:30)
[2017-02-04] MEDS ORDERED: ONDANSETRON 4 MG/2 ML VIAL IVPB PRN (17:30)
[2017-02-04] MEDS ORDERED: ACETAMINOPHEN 325 MG TABLET (FP) PO PRN (17:30)
[2017-02-04 18:42] VITALS: BP 147/67; PULSE 73; TEMP 99
[2017-02-04] MEDS ORDERED: INSULIN SLIDING SCALE (NOVOLOG) 1 VIAL SQ SCH (22:00)
--- NOTE | 2017-02-04 23:18 | OP ---
DATE OF OPERATION: 02/04/2017 PREOPERATIVE DIAGNOSIS: Right ureterovesical junction calculus and right hydronephrosis. POSTOPERATIVE DIAGNOSIS: Right ureterovesical junction calculus and right hydronephrosis. PROCEDURE: Cystoscopy, right ureteroscopic laser lithotripsy and right Double J stent insertion. SURGEON: Edil Newby M.D. DESULFURIZER OPERATOR: None. ANESTHESIA: General via laryngeal mask. ANESTHESIOLOGIST: Lamar Jacobo M.D. SPECIMEN: Right ureteral calculus. CULTURES: None. DRAINS: A 6 [place] 26 cm right Double J stent. ESTIMATED BLOOD LOSS: Negligible. COMPLICATIONS: None. DESCRIPTION OF PROCEDURE: Patient was brought into the operating room, placed on the operating table in the supine position. After administration of general anesthesia via laryngeal mask, the patient was positioned in a dorsal lithotomy position. The genitals and perineum were prepped and draped in the usual sterile manner. Intravenous antibiotics had been previously given on the floor. Sequential compression devices were then placed. The 22 [place]ian cystoscope was inserted into the anterior urethra under direct vision. Anterior urethra was normal. The prosthetic urethra demonstrated moderate bilobar occlusion. The bladder was entered and thoroughly inspected. There were no foreign bodies, tumors, stones, or inflammation. Both ureteral orifices were in the usual location with diminished on the right. The 0.03 guidewire was now inserted into the right ureteral orifice which was advanced to the level of the right renal pelvis under direct visual and fluoroscopic guidance. Now the bladder was emptied, the cystoscope removed. The semirigid ureteroscope was now inserted alongside the guidewire into the distal ureter where a 3-mm jagged stone was visualized. Now the 360 micron laser fiber was inserted, laser lithotripsy was done until the stone was fragmented into a small enough piece to basket. Now the laser fiber was removed. The basket inserted, and the stone was basketed and removed. Unfortunately, the stone was lost on the operative table. The ureteroscope had been removed. The cystoscope back loaded and retrograde pyelogram was done demonstrating no extravasation of urine from the ureter or kidney, demonstrating moderate right hydronephrosis. Now a 6 [place] 26 cm right Double J stent was inserted over the guidewire under direct visual and fluoroscopic guidance, leaving 1 coil in the renal pelvis and 1 coil in the bladder. The bladder was emptied, cystoscope removed. The stent was secured to the penis with suture and Tegaderm. 10 mL of 2% lidocaine gel was instilled per urethra for local anesthesia. He tolerated procedure well and transferred to recovery room in stable condition. PLAN: Follow up in the office in 3 days for stent removal. EDIL NEWBY M.D. [id number]
[2017-02-05] MEDS ORDERED: glipiZIDE-XL 2.5 MG TAB.ER.24 PO SCH (07:00)
[2017-02-05] MEDS ORDERED: TAMSULOSIN HCL 0.4 MG CAP.ER.24H (FP) PO SCH (08:30)
--- NOTE | 2017-02-05 09:56 | EKG ---
Test Reason : Blood Pressure : / mmHG Vent. Rate : 084 BPM Atrial Rate : 084 BPM P-R Int : 164 ms QRS Dur : 096 ms QT Int : 384 ms P-R-T Axes : 060 -39 -16 degrees QTc Int : 453 ms NORMAL SINUS RHYTHM LEFT AXIS DEVIATION LOW VOLTAGE QRS NONSPECIFIC T WAVE ABNORMALITY NO PREVIOUS ECGS AVAILABLE Confirmed by MD SELMA, CARMEL ([id number]) on 02/05/2017 9:55:45 AM Referred By: LARON Confirmed By:CARMEL HAHN MD
[2017-02-05] MEDS ORDERED: METOPROLOL SUCCINATE 100 MG TAB.SR.24H (FP) PO SCH (10:00)
[2017-02-05] MEDS ORDERED: cefTRIAXone 1 GM/50 ML BAG (PRE-DOCKED) IVPB SCH (10:00)
[2017-02-05] MEDS ORDERED: CLOPIDOGREL BISULFATE 75 MG TABLET (FP) PO SCH (10:00)
--- NOTE | 2017-02-05 14:45 | DS ---
Physical Exam: SUBJECTIVE: Patient seen and examined Resting in bed NAD. No complaints. afebrile, hemodynamically stable. denies chest pain, sob, n/v. OBJECTIVE: Vital Signs Period Temp Pulse Resp BP Sys/Dee Pulse Ox Last 24 Hr 97.5 F-99 F 70-84 16-20 133-164/67-89 96-100 PHYSICAL EXAM GENERAL: The patient is awake, alert, and fully oriented, in no acute distress. HEAD: Normal with no signs of trauma. EYES: PERRL, extraocular movements intact, sclera anicteric, conjunctiva clear. ENT: moist mucous membranes. NECK: supple. LUNGS: Breath sounds equal, clear to auscultation bilaterally HEART: Regular rate and rhythm, S1, S2 ABDOMEN: Soft, nontender, nondistended, normoactive bowel sounds, mild R cva tenderness EXTREMITIES: 2+ pulses, warm, well-perfused, no edema. NEUROLOGICAL: Cranial nerves II through XII grossly intact. Normal speech, gait not observed. PSYCH: Normal mood, normal affect. SKIN: Warm, dry LABS HOSPITAL COURSE: Date of Admission:02/04/17 This is a 71-year-old male with a past medical history of hypertension, hyperlipidemia, AODM, CAD status post CABG (2008), and 3 stents(1993, 2008), kidney stones and also ulcerative colitis returns to ER for evaluation of renal colic. He was seen in the ER a few days ago for renal colic and had ctap done which showed right renal edema and perirenal stranding, and mild hydronephrosis , 2 mm proximal right ureteral calculus. He was given script for Percocet and instructed to hydrate himself, which briefly ameliorated his symptoms. He states that he began to feel R flank pain, and RLQ pain Saturday which progressively got worse. He reports the pain was 6-7/10 sharp and radiated to his groin. He reports associated mild urinary burning and nausea. Patient was admitted due to Renal colic. He was found to have R ureteral stone [address] at vesiculoureteral jxn, complicated by worsening moderate hydronephrosis and stranding. he underwent successful lithotripsy with Dr Mims and was discharged hoem with urology f/u Date of Discharge: 02/05/17 Minutes to complete discharge: 45 (na) Discharge Summary Reason For Visit: KIDNEY STONES Condition: Stable - Instructions Diet, Activity, Other Instructions: You were in the hospital because of a right sided kidney stone. you underwent Lithotripsy to destroy the stone. A stent was placed. Hydrate. Keep suture taped to penis, Take bactrim ds 1 po twice a day for 1 week, resume plavix on 02/06 if no urinary bleeding, Follow up with Dr Mims in his office 02/07 for stent removal., no sex. Referrals: Edil Mims MD [Staff Physician] - 1 Week Joaquin Sawant [Primary Care Provider] - 1 Week Disposition: HOME - Home Medications Comprehensive Discharge Medication List: Ambulatory Orders Atorvastatin Ca [Lipitor] 80 mg PO DAILY 01/31/17 Clopidogrel Bisulfate [Plavix -] 75 mg PO DAILY 01/31/17 Glipizide [Glipizide ER] 2.5 mg PO DAILY 01/31/17 Mesalamine [Lialda] 1.2 gm PO DAILY 01/31/17 Metoprolol Succinate [Toprol Xl -] 100 mg PO DAILY 01/31/17 Oxycodone HCl/Acetaminophen [Percocet 5-325 mg Tablet] 1 - 2 tab PO Q6H PRN #20 tab MDD 8 01/31/17 Tamsulosin HCl [Flomax] 0.4 mg PO DAILY #7 cap.er.24h 01/31/17 Sulfamethoxazole/Trimethoprim [Bactrim Ds -] 1 tab PO BID #14 tablet 02/04/17 Problem List - Problems (1) Hydronephrosis Code(s): N13.30 - UNSPECIFIED HYDRONEPHROSIS (2) Kidney stone on right side Code(s): N20.0 - CALCULUS OF KIDNEY (3) Ureteral colic Code(s): N23 - UNSPECIFIED RENAL COLIC (4) HTN (hypertension) Code(s): I10 - ESSENTIAL (PRIMARY) HYPERTENSION (5) HLD (hyperlipidemia) Code(s): E78.5 - HYPERLIPIDEMIA, UNSPECIFIED (6) Diabetes Code(s): E11.9 - TYPE 2 DIABETES MELLITUS WITHOUT COMPLICATIONS (7) Ulcerative colitis Code(s): K51.90 - ULCERATIVE COLITIS, UNSPECIFIED, WITHOUT COMPLICATIONS (8) CAD (coronary artery disease) Code(s): I25.10 - ATHSCL HEART DISEASE OF [place] CORONARY ARTERY W/O ANG PCTRS This patient is new to me today: No Emergency Visit: Yes Care time: The patient presented to the Emergency Department on the above date and was hospitalized for further evaluation of their emergent condition. Critical Care patient: No - Discharge Referral Referred to [facility] Med P.C.: No
[2017-02-05 16:52] LABS: MAGNESIUM 1.7 mg/dL (1.8-2.4)
[2017-02-05] MEDS ORDERED: ATORVASTATIN CA 80 MG TABLET (FP) PO SCH (22:00)
== END 2017-02-04 20:48 | disposition home or self-care (01) ==
LOC: SUPCPDRO 12:09 → FER 12:09 → UNDOADMOB 17:01 → FM/S 17:01 → INTOOBSV 17:01 → UNDOADMOB 21:45 → FM/S 21:45 → J8W 02-04 11:06 → OBSVTOIN 02-04 14:31 → INTOOBSV 02-04 14:31 → JASUSAT 02-04 16:07 → J8W 02-04 16:53 → JASUSAT 02-04 20:48
PROVIDERS: ATTEND Internal Medicine
PROC: 0TF68ZZ Fragmentation in Right Ureter, Via Natural or Artificial Opening Endoscopic (ICD-10-PCS; principal; 2017-02-04 16:30)
PROC: 0T768DZ Dilation of Right Ureter with Intraluminal Device, Via Natural or Artificial Opening Endoscopic (ICD-10-PCS; 2017-02-04 16:30)
DX: N13.2 Hydronephrosis with renal and ureteral calculous obstruction (principal)
CPT/HCPCS: 36415; 71010-TC; 74176-TC; 76000-TC; 80053; 81003; 81015; 83735; 85025; 85027; 85610; 86850; 86900; 86901; 87040; 93005; 94760; 99283-25; J3480

== ENCOUNTER 2017-09-08 14:45 | Emergency (ER) | payer OTHER ==
[2017-09-08 14:59] VITALS: BP 131/74; PULSE 65; TEMP 97.3; BMI 25.8
--- NOTE | 2017-09-08 15:42 | PDOC ---
History of Present Illness - General History Source: Patient Exam Limitations: No Limitations - History of Present Illness Initial Comments: 09/08/17 16:03 The patient is a 72 year old male, with a significant past medical history of a past medical history of hypertension, hyperlipidemia, AODM, CAD status post CABG , and 2 stents, and also ulcerative colitis, who presents to the emergency department with 6 days s/p fall with left side knee, shoulder, hand, and hip pain. Patient reports falling down a flight of stairs and sliding across the floor on his left side. He states he limps secondary to his symptoms, however, reports ambulating without assistance following his injury. He also complains of pain when gripping object in his left hand. He denies any recent fevers, chills, headache or dizziness. He denies any recent nausea, vomit, diarrhea or constipation. He denies any recent chest pain or shortness of breath. He denies any recent dysuria, frequency, urgency or hematuria. Allergies: NKA Past surgical history: S/P CABG and 2 stents. Social History: Former Smoker. Primary Care Physician: Dr. Abdul <Wendy Hanson - Last Filed: 09/08/17 16:03> <Kacie Hassan - Last Filed: 09/08/17 17:48> - General Chief Complaint: Injury Stated Complaint: BACK, LEFT KNEE PAIN S/P FALL Time Seen by Provider: 09/08/17 14:54 Past History <Wendy Hanson - Last Filed: 09/08/17 16:03> - Past Medical History Cardiac Disorders: Yes (CAD) COPD: No Diabetes: Yes GI Disorders: Yes (ULCERATIVE COLITIS) Kidney Stones: Yes - Surgical History Cardiac Surgery: Yes (BYPASS QUADRUPLE 2 STENTS) - Suicide/Smoking/Psychosocial Hx Smoking History: Former smoker Have you smoked in the past 12 months: No If you are a former smoker, when did you quit?: 1979 Information on smoking cessation initiated: No Hx Alcohol Use: No Drug/Substance Use Hx: No Substance Use Type: None <Kacie Hassan - Last Filed: 09/08/17 17:48> - Past Medical History Allergies/Adverse Reactions: Allergies Allergy/AdvReac Type Severity Reaction Status Date / Time No Known Allergies Allergy Verified 09/08/17 14:47 Home Medications: Ambulatory Orders Atorvastatin Ca [Lipitor] 80 mg PO DAILY 01/31/17 Clopidogrel Bisulfate [Plavix -] 75 mg PO DAILY 01/31/17 Glipizide [Glipizide ER] 2.5 mg PO DAILY 01/31/17 Mesalamine [Lialda] 1.2 gm PO DAILY 01/31/17 Metoprolol Succinate [Toprol Xl -] 100 mg PO DAILY 01/31/17 Review of Systems - Review of Systems Comments:: 09/08/17 16:03 GENERAL/CONSTITUTIONAL: No fever or chills. No weakness. HEAD, EYES, EARS, NOSE AND THROAT: No change in vision. No ear pain or discharge. No sore throat. CARDIOVASCULAR: No chest pain or shortness of breath. RESPIRATORY: No cough, wheezing, or hemoptysis. GASTROINTESTINAL: No nausea, vomiting, diarrhea or constipation. GENITOURINARY: No dysuria, frequency, or change in urination. MUSCULOSKELETAL:+Left Side Knee Pain. +Left side shoulder pain. + Left side hip pain. +Left side hand pain. No neck or back pain. SKIN: No rash NEUROLOGIC: No headache, vertigo, loss of consciousness, or change in strength/ sensation. ENDOCRINE: No increased thirst. No abnormal weight change. HEMATOLOGIC/LYMPHATIC: No anemia, easy bleeding, or history of blood clots. ALLERGIC/IMMUNOLOGIC: No hives or skin allergy. All Other Systems: Reviewed and Negative <Wendy Hanson - Last Filed: 09/08/17 16:03> *Physical Exam - Vital Signs Last Vital Signs Temp Pulse Resp BP Pulse Ox 97.3 F L 65 18 131/74 98 09/08/17 14:45 09/08/17 14:45 09/08/17 14:45 09/08/17 14:45 09/08/17 14:45 <Wendy Hanson - Last Filed: 09/08/17 16:03> - Vital Signs Last Vital Signs Temp Pulse Resp BP Pulse Ox 97.3 F L 65 18 131/74 98 09/08/17 14:45 09/08/17 14:45 09/08/17 14:45 09/08/17 14:45 09/08/17 14:45 - Physical Exam Comments: GENERAL: Awake, alert, and fully oriented, in no acute distress HEAD: No signs of trauma EYES: PERRLA, EOMI, sclera anicteric, conjunctiva clear ENT: Auricles normal inspection, hearing grossly normal, nares patent, oropharynx clear without exudates. Moist mucosa NECK: Normal ROM, supple, no lymphadenopathy, JVD, or masses LUNGS: Breath sounds equal, clear to auscultation bilaterally. No wheezes, and no crackles HEART: Regular rate and rhythm, normal S1 and S2, no murmurs, rubs or gallops ABDOMEN: Soft, nontender, normoactive bowel sounds. No guarding, no rebound. No masses EXTREMITIES: +Tenderness to L posterior shoulder. No ecchymosis. No bony deformity. +Tenderness to L hand in the anatomic snuffbox, with tenderness to axial load. +Tenderness to L hip and L knee. With ecchymosis over the L anteromedial knee. No effusion, no deformity. No tenderness to the patella. Remainder of extremities with normal range of motion, no edema. No clubbing or cyanosis. No cords, erythema, or tenderness NEUROLOGICAL: Cranial nerves II through XII grossly intact. Normal speech, normal gait SKIN: Warm, Dry, normal turgor, no rashes or lesions noted. <Kacie Hassan - Last Filed: 09/08/17 17:48> Procedures - Splinting Splint Location: Left: Wrist Pre-Proc Neuro Vasc Exam: normal Hand-Made Type: orthoglass Splint Type: Yes: Thumb Spica Post-Proc Neuro Vasc Exam: normal Alejandro Bandage: 3" Sling: No Complications: No <Kacie Hassan - Last Filed: 09/08/17 17:48> Medical Decision Making - Medical Decision Making 09/08/17 17:47 Counseled patient that his exam is concerning for possible scaphoid fracture, and that it does not always show on x-rays. However, if he does have one, it can lead to avascular necrosis and chronic pain/arthritis. 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 Recommended that he keep the splint in place until he follows up with ortho. <Kacie Hassan - Last Filed: 09/08/17 17:48> *DC/Admit/Observation/Transfer - Attestations Scribe Attestion: 09/08/17 16:04 Documentation prepared by Wendy Hanson, acting as resident medical officer for Kacie Hassan MD. <Wendy Hanson - Last Filed: 09/08/17 16:03> - Discharge Dispostion Admit: No <Kacie Hassan - Last Filed: 09/08/17 17:48> Diagnosis at time of Disposition: Multiple contusions Sprain of left wrist Qualifiers: Encounter type: initial encounter Qualified Code(s): S63.502A - Unspecified sprain of left wrist, initial encounter - Discharge Dispostion Disposition: HOME Condition at time of disposition: Stable - Patient Instructions Printed Discharge Instructions: DI for Wrist Sprain, How to Take Care of Your Splint
== END 2017-09-08 18:35 | disposition home or self-care (01) ==
LOC: FER 14:45
PROC: 2W3DX1Z Immobilization of Left Lower Arm using Splint (ICD-10-PCS; principal; 2017-09-08)
DX: S63.502A Unspecified sprain of left wrist, initial encounter (principal); W18.39XA Other fall on same level, initial encounter; Y93.89 Activity, other specified; Y92.9 Unspecified place or not applicable; I10 Essential (primary) hypertension; E78.5 Hyperlipidemia, unspecified; E11.9 Type 2 diabetes mellitus without complications; Z95.5 Presence of coronary angioplasty implant and graft; Z95.1 Presence of aortocoronary bypass graft; Z87.891 Personal history of nicotine dependence
CPT/HCPCS: 73030-TC-LT; 73130-TC-LT; 73523-TC; 73562-TC-LT; 99284-25